=== PATIENT | male | born 1995 | race Hispanic/Latino ===

== ENCOUNTER 2021-11-10 15:08 | Emergency (ER) | payer OTHER ==
[~2021-11-10] VITALS: Ht 167.6 cm; Wt 76.4 kg
[2021-11-10] MEDS ORDERED: PROPARACAINE 0.5% OPHTH SOL 15ML XX ONE (17:05)
[2021-11-10] MEDS ORDERED: FLUORESCEIN OPHTH 1 MG STRIP XX ONE (17:05)
[2021-11-10] MEDS ORDERED: ERYT5OIN25 OS (17:43)
[2021-11-10] MEDS ORDERED: ERYTHROMYCIN OPHTH OINT OS ONE (17:45)
[2021-11-10 17:56] VITALS: BP 128/62
== END 2021-11-10 18:28 | disposition home or self-care (01) ==
LOC: M ED 15:08
DX: S05.02XA Injury of conjunctiva and corneal abrasion without foreign body, left eye, initial encounter (principal); X58.XXXA Exposure to other specified factors, initial encounter; Y92.89 Other specified places as the place of occurrence of the external cause